=== PATIENT | male | born 1930 | race Caucasian/White ===

== ENCOUNTER 2017-04-05 11:47 | Emergency (ER) | payer MEDICARE, BC, MEDICAID ==
--- NOTE | 2017-04-05 12:16 | EDM.PDOC ---
ED HPI GENERAL MEDICAL PROBLEM - General Chief Complaint: CPR in Progress Stated Complaint: CODE BLUE Time Seen by Provider: 04/05/17 11:47 Source of Information: Reports: EMS, RN, Other (daughter who has power of ip attorney arrived in the ED and said patient was on hospice care and was DNR/DNI when the family arrived at 11:53) History Limitations: Reports: Other (intubated, 911 prearrival notice) - History of Present Illness INITIAL COMMENTS - FREE TEXT/NARRATIVE: Patient was at home and asked his son to apply lotion and then had an arrest. Family panicked and called 911 who arrived on scene. CPR initiated and then intubated. Paramedics report PEA at the scene and enroute. Epinephrine given without change in PEA. Pacemaker spikes. Patient had agonal breathing at the scene. Severity: Severe Improves with: Reports: None - Related Data Allergies Allergy/AdvReac Type Severity Reaction Status Date / Time No Known Allergies Allergy Verified 09/19/16 18:09 Home Meds: Home Meds Albuterol Sulfate [Albuterol Sulfate HFA] 2 puff INH Q6HR PRN 10/02/14 [History] Finasteride 5 mg PO DAILY 10/02/14 [History] Hydrocodone/Acetaminophen [Hydrocodon-Acetaminophn 10-325] 2 tab PO TID [History] Sennosides/Docusate Sodium [Senna-Docusate Sodium] 2 each PO BID 10/02/14 [ History] Tamsulosin HCl 0.4 mg PO DAILY 10/02/14 [History] Multivitamin with Minerals [Multivitamins with Minerals] 1 tab PO DAILY [History] Polyethylene Glycol 3350 [MiraLAX] 17 gm PO DAILY PRN 02/25/15 [History] Simvastatin [Zocor] 10 mg PO BEDTIME 02/25/15 [History] Acetaminophen [Tylenol] 325 mg PO Q6H PRN 03/18/16 [History] Cranberry Ext/C/L. Sporogenes [Azo Cranberry] 1 tab PO BID 03/18/16 [History] Ferrous Sulfate [Iron] 325 mg PO TIDMEALS 03/18/16 [History] Furosemide [Lasix] 10 mg PO DAILY 03/18/16 [History] Insulin Glarg,Human.Rec.Analog [LantUS Solostar] 17 units SUBCUT DAILY 03/18/16 [History] Insulin Lispro [HumaLOG] 5 units SUBCUT TID PRN 03/18/16 [History] Melatonin/Pyridoxine HCl (B6) [Melatonin 3 mg Tablet] 6 mg PO BEDTIME PRN [History] Sodium 1 Gm 1 gm PO DAILY 03/18/16 [History] Albuterol/Ipratropium [DuoNeb 3.0-0.5 MG/3 ML] 1 vial INH QID 06/05/16 [History] Nitroglycerin [Nitrostat] 1 tab SL ASDIRECTED PRN 06/05/16 [History] guaiFENesin [Guaifenesin] 200 mg PO BID PRN 06/05/16 [History] Aspirin [Adult Low Dose Aspirin EC] 81 mg PO DAILY 09/18/16 [History] Metoprolol Succinate [Toprol XL] 12.5 mg PO BID 09/18/16 [History] Omeprazole 20 mg PO DAILY 09/18/16 [History] Past Medical History HEENT History: Reports: Cataract Cardiovascular History: Reports: CAD, Heart Failure, High Cholesterol, Hypertension, [place], Pacemaker, Other (See Below) Other Cardiovascular History: EDEMA Respiratory History: Reports: COPD, Other (See Below) Other Respiratory History: Has pneumonia a couple of times according to pt Gastrointestinal History: Reports: Chronic Constipation, GERD, Other (See Below) Other Gastrointestinal History: HX OF MELANOSIS COLI; CECAL ULCER Genitourinary History: Reports: BPH, Chronic Renal Insuffiency, Retention, Urinary, Other (See Below) Other Genitourinary History: self caths twice a day States is able to void per self during the day. Musculoskeletal History: Reports: Arthritis, Fracture, Other (See Below) Other Musculoskeletal History: history of fractured clavicle, fractured legs, hip, BONE METABOLISM DISORDER; LEFT FOOT DROP Neurological History: Reports: Neuropathy, Diabetic Psychiatric History: Reports: Anxiety, Depression Endocrine/Metabolic History: Reports: Diabetes, Type II Hematologic History: Reports: Anemia, Blood Transfusion(s), Iron Deficiency, Other (See Below) Other Hematologic History: MICROALBUMINURIA; HYPONATREMIA Immunologic History: Reports: None Oncologic (Cancer) History: Reports: Basal Cell Carcinoma Dermatologic History: Reports: Other (See Below) Other Dermatologic History: surgery to remove warts - Infectious Disease History Infectious Disease History: Reports: Chicken Pox, Measles, Mumps, Shingles - Past Surgical History HEENT Surgical History: Reports: Cataract Surgery Cardiovascular Surgical History: Reports: Coronary Artery Stent, Pacer Musculoskeletal Surgical History: Reports: Hip Replacement, Joint Replacement, Shoulder Surgery Social & Family History - Tobacco Use Smoking Status *Q: Former Smoker Years of Tobacco use: 10 Packs/Tins Daily: 0.5 Used Tobacco, but Quit: Yes Month Tobacco Last Used: 11/1958 Second Hand Smoke Exposure: No - Caffeine Use Caffeine Use: Reports: None - Alcohol Use Days Per Week of Alcohol Use: 0 Number of Drinks Per Day: 2 Total Drinks Per Week: 0 - Recreational Drug Use Recreational Drug Use: No ED ROS GENERAL - Review of Systems Review Of Systems: Unable To Obtain ED EXAM, CPR - Physical Exam Exam: See Below Limited By: Unresponsive General Appearance: Thin Eye Exam: Bilateral Eye: Other (bilateral cataracts. Pupils 4 mm and not reactive) Throat/Mouth: Other (intubated. Mucous membranes moist. Orotracheal endotracheal tube.) Head: Atraumatic Respiratory Chest: Other (Intubation with [employer]ER [employer] TESTER did manual bag insufflation. Breath sounds equal, diminished at the bases.) Cardiovascular: CPR In Progress, Other (Mitchel machine doing chest compressions.) GI/Abdominal Exam (Abbreviated): Other (Scaphoid contour, no guarding, no response.) 3+: Femoral (R) (With chest compressions), Femoral (L) Extremities: Pallor Neurological: Unresponsive Skin Exam: Pallor Course - Re-Assessments/Exams Free Text/Narrative Re-Assessment/Exam: 04/05/17 12:25 Check of filter helper showed V fib. Did not check pulse. No femoral pulse without CPR. One ampule of epinephrine given and waited for 2 minutes and then his daughter arrived who has power of ip attorney. She said," He would not have wanted this." I asked her if she wanted us to stop at which point CPR was stopped. Re-examination showed PEA, pace maker spikes on filter helper. A few agonal breaths and then no respirations. No response to stimuli. Pronounced at 11:53 hours. Departure - Departure Time of Disposition: 11:53 Disposition: 20 Preliminary Cause of *Q: Respiratory failure Clinical Impression: Cardiac arrest, Respiratory arrest - Discharge Information Forms: ED Department Discharge
[2017-04-05] MEDS ORDERED: EPINEPHrine 1:10,000 1 MG/10 ML Syringe IV ONE (13:28)
== END 2017-04-05 12:15 | disposition expired ==
LOC: DL.ED 11:47
DX: I46.9 Cardiac arrest, cause unspecified (principal); I25.10 Atherosclerotic heart disease of native coronary artery without angina pectoris; I50.9 Heart failure, unspecified; E78.00 Pure hypercholesterolemia, unspecified; J44.9 Chronic obstructive pulmonary disease, unspecified; K21.9 Gastro-esophageal reflux disease without esophagitis; I13.10 Hypertensive heart and chronic kidney disease without heart failure, with stage 1 through stage 4 chronic kidney disease, or unspecified chronic kidney disease; N18.9 Chronic kidney disease, unspecified; M19.90 Unspecified osteoarthritis, unspecified site; F41.9 Anxiety disorder, unspecified; F32.9 Major depressive disorder, single episode, unspecified; Z98.49 Cataract extraction status, unspecified eye; Z87.891 Personal history of nicotine dependence; Z98.890 Other specified postprocedural states; Z79.899 Other long term (current) drug therapy; Z79.4 Long term (current) use of insulin; Z79.82 Long term (current) use of aspirin
CPT/HCPCS: 31500; 92950; 96374; 99284; 99285; J0171